=== PATIENT | male | born 1990 | race Caucasian/White ===

== ENCOUNTER 2018-10-02 10:17 | Observation (INO) ==
[~2018-10-02 10:17] MED LIST: Clindamycin 900mg (Premix) 900 MG/50 ML BAG IV ONE; LIDOCAINE W/ SODIUM BICARB 0.5 ML SYR SUBD ONE; Lactated Ringers 1,000 ML PRIMARY IV ONE; Nasal Sanitizer POPSWAB ampule 3 AMP (Nozin) PREOP DOSE ENOS SCH; ceFAZolin Inj 2gm (Premix) 2 GM/50 ML BAG IV ONE
[2018-10-02] MEDS ORDERED: LIDOCAINE W/ SODIUM BICARB 0.5 ML SYR ONE (10:26)
[2018-10-02] MEDS ORDERED: Lactated Ringers 1,000 ML PRIMARY IV ONE (10:26)
[2018-10-02] MEDS ORDERED: KETAMINE HCL 100 MG/2 ML SYRINGE IV ONE (10:32)
[2018-10-02] MEDS ORDERED: ROCURONIUM 10 MG/1 ML - 5 ML VIAL IVP ONE (10:32)
[2018-10-02] MEDS ORDERED: Sodium Chloride 0.9% 250 ML ONE (10:33)
[2018-10-02] MEDS ORDERED: Vancomycin Inj 1gm vial ONE (10:33)
[2018-10-02] MEDS ORDERED: Clindamycin 900mg (Premix) 900 MG/50 ML BAG IV ONE (10:42)
--- NOTE | 2018-10-02 10:42 | CRNA.PROGR ---
Anesthesia Recovery Phase I - Post Anesthesia Evaluation Pain Level: 6 (medicated)
--- NOTE | 2018-10-02 10:42 | CRNA.PROGR ---
Post Anesthesia Phase II - Post Anesthesia Phase II Care Assumed By Surgeon: Fredrick Green MD Post Anesthesia Discharge Criteria Met: Yes
--- NOTE | 2018-10-02 10:42 | CRNA.PROGR ---
Anesthesia Time - Procedure/Recovery Time Start Date: 10/02/18 End Date: 10/02/18 Anesthesia : Time In: 13:51 Anesthesia : Time Out: 18:17 Anesthesia : Total Time: 266 - Total Anesthesia Time Total Anesthesia Time (minutes): 266 - Other Weight: 90.718 kg Height: 5 ft 8 in Body Mass Index (BMI): 30.4 Physical Status: P2 Anesthesia Type: General Anesthesia : ET (TIVA,NIMS)
[2018-10-02] MEDS ORDERED: MIDAZOLAM 5 MG/1 ML ONE (12:14)
[2018-10-02] MEDS ORDERED: REMIFENTANIL HCL 2 MG VIAL IV ONE (12:14)
[2018-10-02] MEDS ORDERED: fentaNYL Inj 250 MCG/5 ML VIAL ONE (12:14)
[2018-10-02] MEDS ORDERED: BACITRACIN 50,000 UNIT VIAL IRRIG ONE ×2 (13:34→16:59)
[2018-10-02] MEDS ORDERED: Sodium Chloride 0.9% vial 10 ML ONE ×2 (13:36→16:59)
[2018-10-02] MEDS ORDERED: THROMBIN (BOVINE) 20,000 UNIT KIT TOPICAL ONE (13:36)
[2018-10-02] MEDS ORDERED: LIDOCAINE HCL 2 % 10 ML JELLY URO-JECT TOPICAL ONE ×2 (13:41→14:12)
[2018-10-02] MEDS ORDERED: BUPIVACAINE 0.25% W/ EPI - 10 ML VIAL ONE (14:04)
[2018-10-02] MEDS ORDERED: DEXAMETHASONE PF 10 MG/1 ML VIAL ONE (15:21)
[2018-10-02] MEDS ORDERED: REMIFENTANIL 1 MG/1 ML IV ONE ×2 (15:52→17:12)
[2018-10-02] MEDS ORDERED: Lactated Ringers 2,000 ML PRIMARY IV ONE (16:43)
[2018-10-02] MEDS ORDERED: BUPivacaine Liposome/PF (Exparel) Inj 20ml vial INFIL ONE (17:40)
[2018-10-02] MEDS ORDERED: KETOROLAC 15 MG/1 ML VIAL IVP PRN (18:40)
[2018-10-02] MEDS ORDERED: fentaNYL Inj 100 MCG/2 ML VIAL IVP PRN (18:40)
[2018-10-02] MEDS ORDERED: ATROPINE SULFATE 0.4 MG/1 ML VIAL IVP PRN (18:40)
[2018-10-02] MEDS ORDERED: Prochlorperazine Edisylate Inj 10mg/2ml vial IVP PRN ×2 (18:40→18:47)
[2018-10-02] MEDS ORDERED: HYDROmorphone 2 MG/1 ML IVP PRN (18:40)
[2018-10-02] MEDS ORDERED: Meperidine Inj 50 MG/ML CARPUJECT IVP PRN (18:40)
[2018-10-02] MEDS ORDERED: LIDOCAINE W/ SODIUM BICARB 0.5 ML SYR SUBD PRN (18:40)
[2018-10-02] MEDS ORDERED: ONDANSETRON 4 MG/2 ML VIAL IVP PRN ×2 (18:40→18:47)
[2018-10-02] MEDS ORDERED: KETOROLAC 30 MG/1 ML VIAL ONE (18:44)
[2018-10-02] MEDS ORDERED: Lactated Ringers 1,000 ML PRIMARY IV SCH (18:45)
[2018-10-02] MEDS ORDERED: BISACODYL 5 MG TABLET PO PRN (18:47)
[2018-10-02] MEDS ORDERED: MORPHINE SULFATE 2 MG/1 ML IVP PRN (18:47)
[2018-10-02] MEDS ORDERED: CYCLOBENZAPRINE 10 MG TABLET PO PRN (18:47)
[2018-10-02] MEDS ORDERED: MAGNESIUM CITRATE 296 ML SOLUTION PO PRN (18:47)
[2018-10-02] MEDS ORDERED: HYDROcodone-APAP 7.5 MG-325 MG TABLET PO PRN (18:47)
[2018-10-02] MEDS ORDERED: MAGNESIUM 400 MG/5 ML - 30 ML (MILK OF MAGNESIA) PO PRN (18:47)
[2018-10-02] MEDS ORDERED: Ondansetron ODT Tab 4 MG TAB PO PRN (18:47)
[2018-10-02] MEDS ORDERED: HYDROcodone-APAP 10 MG-325 MG TABLET PO PRN (18:47)
[2018-10-02] MEDS ORDERED: HYDROcodone-APAP 5 MG -325 MG TABLET PO PRN (18:47)
[2018-10-02] MEDS ORDERED: DIAZEPAM 10 MG/2 ML (5 MG/1 ML) CARPUJECT IVP PRN (18:47)
[2018-10-02] MEDS ORDERED: PROMETHAZINE 25 MG/1 ML VIAL IM PRN (18:47)
[2018-10-02] MEDS ORDERED: DOCUSATE 100 MG CAPSULE PO PRN (18:47)
[2018-10-02] MEDS ORDERED: Fleet Enema 133ml RECTAL PRN (18:47)
[2018-10-02] MEDS ORDERED: Metoclopramide Inj 10 MG/2 ML VIAL IVP PRN (18:47)
--- NOTE | 2018-10-02 19:04 | GEN.OPNOTE ---
Operative Note Surgery Date: 10/02/18 Preoperative Diagnosis: 1.) Chronic low back pain. 2.) Right lower extremity radiculopathy. 3.) Massive central L5-S1 herniated nucleus propulsis producing severe central canal and bilateral lateral recess stenosis at this level. 4.) Focal moderate lumbar degenerative disc disease L5-S1. 5.) Multilevel lumbar spondylosis, focal moderate L5-S1 facet arthropathy and hypertrophy. Postoperative Diagnosis: 1.) Chronic low back pain. 2.) Right lower extremity radiculopathy. 3.) Massive central L5-S1 herniated nucleus propulsis producing severe central canal and bilateral lateral recess stenosis at this level. 4.) Focal moderate lumbar degenerative disc disease L5-S1. 5.) Multilevel lumbar spondylosis, focal moderate L5-S1 facet arthropathy and hypertrophy. Procedure: 1.) Bilateral L5-S1 microlumbar discectomy. (CPT code: 66829-23). 2.) Use of operative microscope for microsurgical techniques used for discectomies. (CPT code: 74420). 3.) Use of intra-operative fluoroscopy for localization of correct surgical level. 4.) Use of intra-operative neuromonitoring including EMG and SSEP's. Surgeon: Fredrick Green MD Regional Operations Manager: ELIZABETH Navarro Anesthesia Provider: Lori Borja CRNA Anesthesia Type: General Estimated Blood Loss (mL): 100 Fluids: See anesthesia record Pathology: None Indications: Mr. Byers is a very pleasant 28 year old with low back pain and right leg numbness. Mr. Byers has a pins and needles feeling in his right leg. His right leg is weak and has been having a difficult time walking. Hestates th at he gets occasional left leg numbness after he has been sitting for a long period of time. He has been experiencing these symptoms for 6 months. He denies any injury. He had a recent lumbar MRI at [facility] demonstrating a massive L5-S1 herniated nucleus propulsis with severe central canal stenosis. He presents today to undergo a bilateral L5-S1 microlumbar discectomy. Findings: 1.) Massive L5-S1 disc herniation. 2.) Severe L5-S1 central canal and latera recess stenosis. Complications: None Operative Summary: Mr. Byers was met in the preoperative area. His surgical history and physical in his chart was reviewed. The procedure to be performed was confirmed with him and we were both in agreement on the procedure to be performed and this matched what was written on the patient's consent form. Any questions that he or family members had were answered before he was taken back to the operating room suite. Mr. Byers was brought back to the operating room suite and put under general anesthesia and intubated by the anesthesia staff. He had a Pearson catheter placed in his bladder for the procedure. He had pneumatic compression hose placed on his lower legs bilaterally. Mr. Byers was carefully rolled over onto the [place] surgical table with his arms gently positioned upwards with his shoulders abducted less than 90. His arms were well-padded with foam padding on top of the padding the surgical armboards. The region of his chest and axilla was checked to make sure that that there were no pressure points over the region of the brachial plexus. His nipples were checked be below the chest pad with no pressure points. All bony prominences were well padded. His Pearson catheter was checked be free from kinks. His pneumatic compression hose was attached to a pneumatic compression device. The C-arm fluoroscopy unit was used to localize the skin incision for the approach to the intended surgical level. The intended skin incision was marked with a skin marker with crosshatches. Mr. Byers was prepped and draped in the usual and standard fashion. He was given 900 mg of Cleocin IV and 1 g of vancomycin IV for perioperative antibiosis. He was given 10 mg of Decadron IV. A standard surgical timeout was performed identifying the correct patient, the intended procedure, and the correct equipment being available for the procedure. The intended skin incision was injected subcutaneously with quarter percent Marcaine with 1 in 200,000 epinephrine. The skin was then incised with a 10 blade scalpel and all dermal and superficial bleeding points were controlled bipolar cautery. Dissection was taken down through the subcutaneous tissue to the level of the lumbosacral fascia. The soft tissue above the fascia was gently dissected laterally to expose the fascia to assist with the closure of the fascia at the end of the procedure. The fascia was then incised along the border the spinous processes bilaterally and subperiosteal dissection was performed down the spinous processes and out over the lamina bilaterally. When the inferior aspect of the lamina became identified, the [place] 4 instrument was placed underneath the lamina and the level was localized with lateral fluoroscopy. The L5-S1 level was identified, the intended surgical level. Subperiosteal dissection was continued bilaterally exposing the majority of the L5 lamina as well as the upper part of the sacrum and the medial aspect of the L5-S1 facet joints bilaterally. Two Gelpi retractors were placed for self- retaining retraction. The operating microscope was brought into the surgical field and used for microsurgical techniques used for the procedure. The high-speed Midas Gunnar drill with a matchstick bit was then used to perform a hemilaminotomy and medial facetectomy at L5-S1 on the right. An up angled curette was then used to strip the insertion of the yellow ligament from underneath the remaining aspect the L5 lamina. The plane between the yellow ligament and the dura was established with a nerve hook. The yellow ligament was completely removed in the right lateral hemicanal to the midline and also laterally over the lateral recess. The yellow ligament was completely removed from the L5 pedicle to the S1 pedicle. A [place] 4 instrument was then used to carefully dissect the soft tissue adjacent to the takeoff of the transversing S1 nerve root identifying the L5-S1 disc space. The transversing S1 nerve root and the thecal sac were markedly displaced dorsally by the massive disc herniation underneath. The thecal sac and transversing S1 nerve root were very gently retracted with a Bjorn'Fina nerve root retractor. Epidural veins were coagulated over the disc space with bipolar cautery turned down to a low setting and cut with microscissors. The massive subligamentous disc herniation was incised with a 15 blade scalpel and then a nerve hook was used to tease out large fragments of disc material. Once the disc material in the disc herniation was completely removed on the right, additional disc material was removed from the disc space proper with disrupted disc material being removed from the disc space. The thecal sac and transversing nerve root on the right were completely decompressed and returned to their normal position in the canal. The high-speed Midas Gunnar drill with a matchstick bit was then used to perform a hemilaminotomy and medial facetectomy at L5-S1 on the left. An up angled curette was then used to strip the insertion of the yellow ligament from underneath the remaining aspect the L5 lamina. The plane between the yellow ligament and the dura was established with a nerve hook. The yellow ligament was completely removed in the left lateral hemicanal to the midline and also laterally over the lateral recess. The yellow ligament was completely removed from the L5 pedicle to the S1 pedicle. A [place] 4 instrument was then used to carefully dissect the soft tissue adjacent to the takeoff of the transversing S1 nerve root on the left, identifying the L5-S1 disc space on the left. The transversing S1 nerve root and the thecal sac on this side were also markedly displaced dorsally by the massive disc herniation. The thecal sac and transversing S1 nerve root were very gently retracted with a Bjorn'Fina nerve root retractor. Epidural veins were coagulated over the disc space with bipolar cautery turned down to a low setting and cut with microscissors. The massive subligamentous disc herniation was incised with a 15 blade scalpel and then a nerve hook was again used to tease out large fragments of disc material. Once the disc material in the disc herniation was completely removed on this side, the left, additional disc material was removed from the disc space proper with again finding disrupted disc material in the disc space which was removed with pituitary rongeurs. The thecal sac and transversing nerve root on the left were completely decompressed and returned to their normal position in the canal. Excellent decompression of the surgical site bilaterally was assured both by visual inspection and by palpation in the canal, lateral recesses, neuroforamen and around the nerve structures with a [place] instrument. This surgical site was copiously irrigated with bacitracin irrigation. Hemostasis was performed with bipolar cautery. The surgical site was again irrigated with bacitracin irrigation. This incision was then closed in layers with Vicryl suture using #1 Vicryl suture to close the fascia tightly in an interrupted fashion. The deep subcutaneous tissue and fascia was reapproximated with 2-0 Vicryl suture in a interrupted fashion. The dermis and superficial subcutaneous tissue was reapproximated with 3-0 Vicryl suture in an inverted interrupted fashion. All surgical drapes removed from Mr. Byers. He was awoken and extubated by the anesthesia staff. He was taken to the recovery room in stable condition. All surgical counts were reported as correct by the scrub and circulating personnel. A physician's restaurant assistant, Ms. Kate Ordonez PA-C, assisted with the procedure including the exposure and closure portions of the procedure. She also provided irrigation and suctioning throughout the procedure. She also skillfully and carefully retracted the nerve structures during the more critical portions of the procedures such as when removing disc from the disc herniation and the disc space.
--- NOTE | 2018-10-02 19:06 | NEURO.PROG ---
Subjective Post Op Day: 0 Pain Management: PO Pearson Catheter: No Diet: Regular Ambulating: Yes Additional Details: Awake and alert in PACU. Denies leg symptoms. States he can now feel his right foot. Full dorsiflexion/plantarflexion bilaterally. PLAN: 1.) To med/surg floor for observation. 2.) Continue post-operative antibiotics. 3.) Continue post-operative pain control. 4.) Mobilize. Objective : Data - Vital Signs Vital Signs and I&O: Vital Signs - Last Taken Temperature 96.8 F 10/02/18 18:40 Pulse Rate 68 10/02/18 19:00 Respiratory Rate 12 10/02/18 19:00 Blood Pressure 134/103 10/02/18 19:00 Pulse Ox 100 10/02/18 19:00 Intake and Output (24hr x 4 totals) 09/30/18 10/01/18 10/02/18 10/03/18 05:59 05:59 05:59 05:59 Intake Total 2400 / 2400 Output Total 1350 / 1350 Balance 1050 / 1050
[2018-10-02] MEDS: Vancomycin-PHA to Dose IV SCH ×2 (20:06→21:34)
[2018-10-02] MEDS: Dexamethasone Tab 4 MG TABLET PO SCH (20:12)
[2018-10-02] MEDS: Clindamycin 900mg (Premix) 900 MG/50 ML BAG IV SCH (20:13)
[2018-10-03] MEDS: Clindamycin 900mg (Premix) 900 MG/50 ML BAG IV SCH (02:40)
[2018-10-03] MEDS: Dexamethasone Tab 4 MG TABLET PO SCH ×2 (02:41→08:24)
[2018-10-03 05:09] LABS: BASOPHILS # (AUTO) 0 10*3/UL; BASOPHILS % (AUTO) 0 % (0-1); EOSINOPHILS # (AUTO) 0 10*3/UL; EOSINOPHILS % (AUTO) 0 % (0-8); Hematocrit [HCT] 42.8 % (42.0-52.0); Hemoglobin [HGB] 15.3 g/dL (14.0-18.0); LYMPHOCYTES # (AUTO) 0.66 10*3/uL; MEAN CORPUSCULAR HEMOGLOBIN 29.2 PG (27-31); MEAN CORPUSCULAR HGB CONC 35.7 g/dL (33-37); MEAN CORPUSCULAR VOLUME 81.7 FL (80-90); MEAN PLATELET VOLUME 9.5 FL (7.4-12.2); MONOCYTES # (AUTO) 0.26 10*3/UL (0.3-0.8); MONOCYTES % (AUTO) 2.4 % (5-15); NEUTROPHILS # (AUTO) 9.96 10*3/UL; NEUTROPHILS % (AUTO) 91.4 % (50-80); RED BLOOD COUNT 5.24 10^6/uL (4.70-6.10)
[2018-10-03 05:22] LABS: BLOOD UREA NITROGEN 12 mg/dL (7-22); BUN/CREATININE RATIO 17.14 (6-20)
[2018-10-03 05:26] LABS: PLATELET MORPHOLOGY COMMENT NORMAL MORPHOLOGY (NORM); RBC MORPHOLOGY COMMENT NORMAL MORPHOLOGY (NORM); WBC MORPHOLOGY COMMENT NORMAL MORPHOLOGY (NORM)
[2018-10-03 07:38] VITALS: BP 135/80; RESP 16; TEMP 97.9; O2SAT 95
--- NOTE | 2018-10-03 07:38 | NEURO.PROG ---
Subjective Post Op Day: 1 Pearson Catheter: No Diet: Regular Ambulating: Yes Additional Details: Eddie is up in his room this morning. He says the numbness he had preoperatively is almost completely resolved. He has good bilateral dorsi and plantar flexion strength and good quad strength bilateral. He has ambulated the halls without difficulty, saying his preoperative gait difficulty is much improved. He has not required pain medicine. His incision is dry and intact. He was given post op instructions regarding incision care and activity. Dr. Green's office will call him Friday with a post op appointment in [place]. Objective : Data - Labs CBC and BMP: 10/03/18 04:18 10/03/18 04:18 - Vital Signs Vital Signs and I&O: Vital Signs - Last Taken Temperature 97.7 F 10/03/18 02:57 Pulse Rate 54 L 10/03/18 02:57 Respiratory Rate 20 10/03/18 02:57 Blood Pressure 128/81 10/03/18 02:57 Pulse Ox 98 10/03/18 02:57 Intake and Output (24hr x 4 totals) 10/01/18 10/02/18 10/03/18 10/04/18 05:59 05:59 05:59 05:59 Intake Total 5860 / 5860 Output Total 3125 / 3125 Balance 2735 / 2735
--- NOTE | 2018-10-03 07:51 | NEURO.PROG ---
Subjective Post Op Day: 1 Pain Management: PO Pearson Catheter: No Flatus: Yes Diet: Regular Ambulating: Yes Additional Details: Awake and alert. Pre-operative symptoms essentially resolved except lateral aspect of right foot still numb but less so. Touching his legs feels normal, which did not pre-operatively, "I can feel my legs". Full dorsiflexion/plantarflexion strength bilaterally. Feels ready for discharge to home. PLAN: Discharge to home. Objective : Data - Labs CBC and BMP: 10/03/18 04:18 10/03/18 04:18 - Vital Signs Vital Signs and I&O: Vital Signs - Last Taken Temperature 97.9 F 10/03/18 07:34 Pulse Rate 82 10/03/18 07:34 Respiratory Rate 16 10/03/18 07:34 Blood Pressure 135/80 10/03/18 07:34 Pulse Ox 95 10/03/18 07:34 Intake and Output (24hr x 4 totals) 10/01/18 10/02/18 10/03/18 10/04/18 05:59 05:59 05:59 05:59 Intake Total 5860 / 5860 Output Total 3125 / 3125 Balance 2735 / 2735
--- NOTE | 2018-10-03 09:54 | CRNA.PROGR ---
Anesthesia Note - Progress Notes Anesthesia Progress Note: Dischargedthis am early. Nursing staff reported," It didn't look like he had surgery." No apparent difficulties with anesthesia.
--- NOTE | 2018-10-05 12:14 | OTI REPORT ---
Thank you for the referral of Eddie Byers. He was seen on 10/03/18 for an occupational therapy inpatient evaluation status post laminectomy. SUBJECTIVE: The patient is a 28-year-old male. The patient reports he is doing very well today with very minimal pain. The patient does have assistance at home including his significant other who is able to assist with dressing tasks. The patient lives in [place], [place]. At prior level of function he reports that he did have lower extremity weakness; however, this has greatly improved since his surgery. The patient has four steps to the inside of his home and no steps within his home. PAST MEDICAL HISTORY: Past medical history can be found in the patient's medical record. OBJECTIVE FINDINGS: General observations: The patient was already up and moving upon therapist's arrival. He did have his back brace in place and he was already dressed. The patient reports he had no difficulty getting dressed this morning. The patient was educated in low back precautions to include no bending/lifting/twisting as well as log rolling technique and lifting restrictions. The patient did report an understanding of this. Ambulation: The patient demonstrated the ability to ambulate 86 feet around the nurse's station independently with no losses of balance without the use of an assistive device. The patient also ascended and descended a flight of stairs with a reciprocal gait pattern with no difficulty. ASSESSMENT: The patient tolerated treatment well with no safety concerns at this time. Occupational Therapy Goals: To be met by discharge from inpatient: Patient will demonstrate the ability to perform upper and lower extremity dressing tasks independently. Patient will be able to ambulate without assistive device safely while following back precautions. TREATMENT PLAN: Patient will be discharged from OT services as all goals have been met at this time. INITIAL TREATMENT: Treatment today consisted of the initial evaluation activities only. Following treatment the patient returned to his room and is going to be discharged early this morning. IRMA
== END 2018-10-03 08:57 | disposition home or self-care (01) ==
LOC: MED/SURG 10:17 → OR 10:17 → OPS 10:18
PROVIDERS: ADMIT Neurological Surgery; ATTEND Neurological Surgery